=== PATIENT | male | born 1950 | race African-American/Black ===

== ENCOUNTER 2016-09-30 10:42 | Emergency (ER) | payer BC, OTHER ==
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
--- NOTE | 2016-09-30 11:39 | RAD ---
HISTORY: Left knee pain COMPARISONS: January 05, 2006 VIEWS: 4, Frontal, lateral, axial, and oblique views of the left knee FINDINGS: BONE DENSITY: Normal. BONES: There is no displaced fracture. There are patellar enthesophytes. JOINTS: There is no arthropathy. There is no suprapatellar joint effusion or lipohemarthrosis. ALIGNMENT: There is no dislocation. SOFT TISSUES: Unremarkable. OTHER FINDINGS: None. IMPRESSION: MINIMAL DEGENERATIVE CHANGES. NO ACUTE OSSEOUS INJURY. IF SYMPTOMS PERSIST, RECOMMEND REPEAT IMAGING.
[2016-09-30] MEDS ORDERED: Ibuprofen TAB* 600 MG PO ONE (11:59)
[2016-09-30 12:25] VITALS: BP 142/89
== END 2016-09-30 12:26 | disposition home or self-care (01) ==
LOC: ED 10:42
DX: I49.1 Atrial premature depolarization (principal); M76.50 Patellar tendinitis, unspecified knee; M25.562 Pain in left knee
CPT/HCPCS: 93005; 99282

== ENCOUNTER 2019-06-05 10:18 | Emergency (ER) | payer SELFPAY ==
--- NOTE | 2019-06-05 10:27 | ED ---
Lower Extremity - HPI Summary HPI Summary: Pt. is a 68 y.o male who presents to the ER for left knee pain x 3 days. Pt. denies any falls or injuries. Pt. states pain is too great to bear weight. He denies fever, chills, calf pain or swelling. Pt. seen for similar sxs two years ago. Pt. denies past medical hx. Pt. has been taking aspirin and apply a topical cream without improvement. Sxs are mild in severity. Walking makes sxs worse. Nothing makes sxs better. - History of Current Complaint Chief Complaint: EDExtremityLower Stated Complaint: LEFT KNEE PAIN PER PT Time Seen by Provider: 06/05/19 10:25 Hx Obtained From: Patient Pain Intensity: 10 - Allergies/Home Medications Allergies/Adverse Reactions: Allergies Allergy/AdvReac Type Severity Reaction Status Date / Time No Known Allergies Allergy Verified 06/05/19 10:23 PMH/Surg Hx/FS Hx/Imm Hx Previously Healthy: Yes Endocrine/Hematology History: Denies: Hx Sickle Cell Disease Cardiovascular History: Denies: Other Cardiovascular Problems/Disorders Respiratory History: Denies: Other Respiratory Problems/Disorders GI History: Denies: Other GI Disorders History: Reports: Hx Kidney Stones Denies: Other Problems/Disorders Musculoskeletal History: Denies: Other Musculoskeletal History Sensory History: Reports: Hx Contacts or Glasses - GLASSES Denies: Hx Hearing Aid Opthamlomology History: Reports: Hx Contacts or Glasses - GLASSES Neurological History: Denies: Other Neuro Impairments/Disorders - Cancer History Hx Chemotherapy: No - Surgical History Surgery Procedure, Year, and Place: HX OF RT INGUINAL HERNIA REPAIR 2 MONTHS AGO Hx Anesthesia Reactions: No Infectious Disease History: No Infectious Disease History: Denies: Traveled Outside the US in Last 30 Days - Family History Known Family History: Positive: None, Non-Contributory - Social History Occupation: Employed Full-time Lives: With Family Alcohol Use: None Substance Use Type: Reports: None Smoking Status (MU): Never Smoked Tobacco Review of Systems Constitutional: Negative Negative: Fever, Chills Positive: Other - Left knee pain Skin: Negative Negative: Rash Neurological: Negative Negative: Weakness, Paresthesia, Numbness All Other Systems Reviewed And Are Negative: Yes Physical Exam Triage Information Reviewed: Yes Vital Signs On Initial Exam: Initial Vitals Temp Pulse Resp BP Pulse Ox 97.3 F 82 14 176/89 99 06/05/19 10:20 06/05/19 10:20 06/05/19 10:20 06/05/19 10:20 06/05/19 10:20 Vital Signs Reviewed: Yes Appearance: Positive: Pain Distress - Pt. sitting up in bed, appears in pain but nontoxic. Skin: Positive: Warm, Dry Head/Face: Positive: Normal Head/Face Inspection Eyes: Positive: Normal, EOMI Neck: Positive: Supple Musculoskeletal: Positive: Other - Good pedal pulse to left foot. No calf pain or tenderness. Increased warmth noted to left knee without erythema. No wounds. Limited ROM secondary to pain. Majority of pain on palpation is over patella and quadriceps tendon. Neurological: Positive: Normal, CN Intact II-III Psychiatric: Positive: Affect/Mood Appropriate Procedures - Sedation Patient Received Moderate/Deep Sedation with Procedure: No Diagnostics - Vital Signs Vital Signs Temp Pulse Resp BP Pulse Ox 06/05/19 10:20 97.3 F 82 14 176/89 99 - Laboratory Result Diagrams: 06/05/19 11:06 06/05/19 11:06 Lab Statement: Any lab studies that have been ordered have been reviewed, and results considered in the medical decision making process. Lower Extremity Course/Dx - Course Course Of Treatment: Pt. presenting for atraumatic left knee pain. He is afebrile. Pt. is very tender on exam, can flex but with great pain. He has slight increased in warmth over knee. WIll check basic labs and xray. Pt. given a dose of naproxen and lortab. Ice pack applied. Xray negative for acute findings per radiology. Labs show normal WBC and CRP. Suspect tendontitis given location of pt.'s pain. On re-exam pt. is feeling better and able to ambulate now. Results discussed. WIll rx a few tabs of lortab and naproxen. To call ortho clinic on friday for f.u apt. To ice and elevate. Light activity. To return to ER if sxs change or worsen. - Diagnoses Differential Diagnosis/HQI/PQRI: Positive: Arthritis, Fracture (Closed), Sprain , Strain, Tendonitis Provider Diagnoses: Knee pain Discharge ED - Sign-Out/Discharge Documenting (check all that apply): Patient Departure - Discharge Plan Condition: Improved Disposition: HOME Prescriptions: Hydrocodone/Acetaminophen [Hydrocodone-Acetamin 5-325 mg] 1 each PO Q6H #8 tablet MDD 4 Naproxen [Naproxen 500 mg tab] 500 mg PO BID #20 tablet Patient Education Materials: Knee Pain (ED) Referrals: Gabrielle Cruz MD [Medical Doctor] - Additional Instructions: Call the orthopedic office on Friday for a close follow up appointment Medication as directed Ice and elevate intermittently Light activity Return to ER if symptoms change or worsen - Billing Disposition and Condition Condition: IMPROVED Disposition: Home - Attestation Statements Provider Attestation: I was available for consultation for this patient. I did not evaluate the patient or participate in any medical decision making or disposition decisions unless I am specifically named in the chart as having consulted on the patient. If I have consulted on the patient, please see my own ED note on the patient encounter. Daniela Izaguirre MD
[2019-06-05] MEDS ORDERED: Naproxen TAB* 250 MG PO ONE (10:48)
[2019-06-05] MEDS ORDERED: HYDROcodone/ACETAMIN 5-325 MG* 1 TAB PO ONE (10:48)
[2019-06-05 11:24] LABS: ABS Lymphocytes 0.7 10^3/ul (1.0-4.8); ABS Monocytes 0.8 10^3/ul (0-0.8); ABS Neutrophils 6.9 10^3/ul (1.5-7.7); Eosinophil % 0.4 %; Hematocrit 49 % (42-52); Hemoglobin 16.9 g/dL (14.0-18.0); Lymphocyte % 7.9 %; Mean Corpuscular HGB Conc 34 g/dL (31-36); Mean Corpuscular Hemoglobin 31 pg (27-31); Mean Corpuscular Volume 91 fL (80-94); Mean Platelet Volume 8.2 fL (7.4-10.4); Nucleated Red Blood Cells % 0.1; Platelet Count 146 10^3/uL (150-450); Red Blood Count 5.43 10^6 /uL (4.18-5.48); Red Cell Distribution Width 14 % (10-15); White Blood Count 8.4 10^3/uL (3.5-10.8)
[2019-06-05 11:40] LABS: Albumin/Globulin Ratio 1.1 (1-3); BUN/Creatinine Ratio 12.7 (8-20); C Reactive Protein 4.37 mg/L (<8.01); Calcium 9.8 mg/dL (8.6-10.3); EGFR African American 68.7 (>60); EGFR Non-African American 56.7 (>60); Globulin 3.7 g/dL (2-4); Total Bilirubin 0.9 mg/dL (0.2-1.0); Total Protein 7.7 g/dL (6.4-8.9)
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
[2019-06-05 12:32] VITALS: BP 138/103
[2019-06-07 21:19] LABS: B garinii/B afzelii PCR Negative (Negative); B mayonii PCR Negative (Negative)
== END 2019-06-05 12:37 | disposition home or self-care (01) ==
LOC: ED 10:18
DX: M25.562 Pain in left knee (principal)
CPT/HCPCS: 36415; 80053; 85025; 86140; 87476; 87798; 99282; A9270-GY